=== PATIENT | male | born 1955 | race Caucasian/White ===

== ENCOUNTER 2024-04-13 18:32 | Emergency (ER) | payer MEDICARE, SELFPAY ==
[2024-04-13 18:32] VITALS: BMI 31.5
[2024-04-13 18:42] VITALS: BP 172/101
--- NOTE | 2024-04-13 19:22 | ED.GENMED ---
History of Present Illness
<NATACHA Caldwell (Lenka) - Last Filed: 04/14/24 00:28>
General
Chief Complaint: Cardiac Symptoms
Source: patient
Exam Limitations: none
Time Seen by Provider: 04/13/24 19:02
Nursing documentation reviewed up to this point in time: agreed with
History of Present Illness
History of Present Illness:
Pt is a 68 yo male with PMHx of endocarditis, [place] s/p 3 cardiac stents, paroxysmal AFib, HTN/HLD, multiple sclerosis, hypothyroidism who presents to the ED with dyspnea and chest tightness x 1d. Last night pt began feeling like he intermittently
couldn't take a deep breath and felt his pulse which 'felt like it was skipping beats'. This morning his head felt foggy and he reports general malaise on top of the intermittent SOB and now left sided chest tightness. He states he was clammy
earlier today and feels the need to burp. He has not taken any medications specifically for this discomfort. The only similar symptom to his prior [place] is the SOB. He denies MERCHANT, vision changes, back or flank pain, change in dyspnea with positioning,
abdominal pain, urinary or stool changes in the past week, numbness or tingling in his extremities, calf redness, swelling, or pain.
He notes that 1 week ago he had a viral URI where he tested negative for COVID, but he went online and ordered Ivermectin. His upper URI sx resolved in 3d, leaving him fatigued. He states he typically walks 2-3 miles daily, but over the past 1-2
weeks he has been much more sedentary.
He takes ASA 81mg daily.
Past History
<NATACHA Caldwell (Lenka) - Last Filed: 04/14/24 00:28>
Past History
ED Past Medical History: Arrthythmia (paroxysmal AFib), CAD, HTN, Hypercholesterolemia, [place], Hypothyroidism and Other (endocarditis, MS w/ chronic pain, no longer on chronic opiods, takes Kratom-leaf from [place])
ED Past Surgical History: Cardiac (3 stents)
Social History
Tobacco: Former smoker
Alcohol: None
Phy Exam
<NATACHA Caldwell (Lenka) - Last Filed: 04/14/24 00:28>
General Physical Exam
General Presentation: well appearing and no apparent distress
General age: appears stated age
General Skin: warm and dry
General Habitus: normal
General Mental: alert
General Hydration: appears well hydrated
Cardiovascular Exam
Cardiovascular Exam: regular rate/rhythm, no edema and normal peripheral pulses
Pulmonary Exam
Pulmonary Exam: lungs clear, no respiratory distress, no rales, chest non tender, no rhonchi and no cough
Gastrointestinal Exam
Gastrointestinal Exam: soft
Palpation: left upper quadrant: Minimal tenderness (minimally tender, with radiation to epigastric region. nontender with direct palpation of substernal/epigastric area), left lower quadrant: No tenderness, right upper quadrant: Minimal tenderness
(minimally tender, with radiation to epigastric region. nontender with direct palpation of substernal/epigastric area) and right lower quadrant: No tenderness
Neurological Exam
Neurological Exam: alert, oriented x3 and speech normal
Musculoskeletal Exam
Musculoskeletal Exam: full ROM and no edema
Skin Exam
Skin Exam: warm/dry and redness (B/L axilla)
Course
<NATACHA Caldwell (Lenka) - Last Filed: 04/14/24 00:28>
Orders/Labs/Results
Orders:
Orders
04/13/24 18:44
EKG [Electrocardiogram (*1)] Urgent
Reason for Study: Palpitations
EKG- Treatment ONCE
04/13/24 19:37
Comprehensive Metabolic Panel Urgent
Troponin I Urgent
04/13/24 20:05
Complete Blood Count/With Diff Urgent
Prothrombin Time Urgent
04/13/24 23:41
Troponin I Urgent
04/14/24 00:37
Electrocardiogram (*1) Urgent
Reason for Study: Chest Pain
EKG- Treatment ONCE
04/14/24 00:38
CR Chest - 2 Views Urgent
Comment:
Reason For Exam: cp
Abnormal Lab Results
04/13/24 04/13/24
19:37 20:05
Hgb 12.2 L g/dL
(13.0-18.0)
Hct 36.6 L %
(39.0-52.0)
MCV 76.6 L fL
(80.0-94.0)
MCH 25.5 L pg
(27.0-31.0)
RDW 15.9 H %
(11.5-14.5)
Absolute Lymphs (auto) 1.1 L 10^3/uL
(1.2-3.4)
Lymphocytes % 19.0 L %
(20.5-51.1)
Chloride 108 H mmol/L
(98-107)
Glucose 159 H mg/dl
(70-99)
04/13/24 20:05
04/13/24 19:37
Vital Signs
Initial and Last Documented VS:
Initial Vital Signs
Temp Pulse Resp BP Pulse Ox
98.0 F 105 17 172/101 97
04/13/24 18:42 04/13/24 18:42 04/13/24 18:42 04/13/24 18:42 04/13/24 18:42
Last Documented Vital Signs
Temp Pulse Resp BP Pulse Ox
98.0 F 77 15 172/101 95
04/13/24 18:42 04/14/24 00:15 04/14/24 00:15 04/13/24 18:42 04/14/24 00:15
<Jose Wilson, DO - Last Filed: 04/14/24 00:51>
Orders/Labs/Results
Orders:
Orders
04/13/24 18:44
EKG [Electrocardiogram (*1)] Urgent
Reason for Study: Palpitations
EKG- Treatment ONCE
04/13/24 19:37
Comprehensive Metabolic Panel Urgent
Troponin I Urgent
04/13/24 20:05
Complete Blood Count/With Diff Urgent
Prothrombin Time Urgent
04/13/24 23:41
Troponin I Urgent
04/14/24 00:37
Electrocardiogram (*1) Urgent
Reason for Study: Chest Pain
EKG- Treatment ONCE
04/14/24 00:38
CR Chest - 2 Views Urgent
Comment:
Reason For Exam: cp
Abnormal Lab Results
04/13/24 04/13/24
19:37 20:05
Hgb 12.2 L g/dL
(13.0-18.0)
Hct 36.6 L %
(39.0-52.0)
MCV 76.6 L fL
(80.0-94.0)
MCH 25.5 L pg
(27.0-31.0)
RDW 15.9 H %
(11.5-14.5)
Absolute Lymphs (auto) 1.1 L 10^3/uL
(1.2-3.4)
Lymphocytes % 19.0 L %
(20.5-51.1)
Chloride 108 H mmol/L
(98-107)
Glucose 159 H mg/dl
(70-99)
04/13/24 20:05
04/13/24 19:37
Vital Signs
Initial and Last Documented VS:
Initial Vital Signs
Temp Pulse Resp BP Pulse Ox
98.0 F 105 17 172/101 97
04/13/24 18:42 04/13/24 18:42 04/13/24 18:42 04/13/24 18:42 04/13/24 18:42
Last Documented Vital Signs
Temp Pulse Resp BP Pulse Ox
98.0 F 77 15 172/101 95
04/13/24 18:42 04/14/24 00:15 04/14/24 00:15 04/13/24 18:42 04/14/24 00:15
<Carine Boone) NATACHA Lewis - Last Filed: 04/14/24 00:28>
MDM/Problems Addressed
Differential Diagnosis Includes:
DDx: [place] vs PE vs unstable angina
Pt presenting
Chronic conditions affecting care: CAD
<NATACHA Caldwell (Lenka) - Last Filed: 04/14/24 00:28>
*Critical Care Note
Total Time (30-74mins, 75-104mins- exclusive of procedures): Not Applicable
<NATACHA Caldwell (Lenka) - Last Filed: 04/14/24 00:28>
Update Note
Update Note:
Initial troponin: < 0.012, will redraw @ 2330
2044 - pt still with symptoms of chest tightness and difficulty catching deep breath. Informed that he got bitted by 'a ton' of mosquitos 2-3d ago. Additionally informed that he had COVID 1-2 months ago, aside from the recent viral illness 1 week
ago that he took Ivermectin for.
Repeat troponin: < 0.012
ED Attending Note
<NATACHA Caldwell (Lenka) - Last Filed: 04/14/24 00:28>
-
Portions of this chart may have been created with voice recognition software.� Occasional wrong word or��sound alike� substitutions may have occurred due to the inherent limitations of voice recognition software.
<Jose Wilson, DO - Last Filed: 04/14/24 00:51>
ED Attending Note
Patient seen and examined by attending physician: Yes
I performed the substantive portion of visit, reviewed & personally made and approve the management plan that is documented in note by myself or AIXA.: Yes
ED Attending Note:
Pleasant 68-year-old male presents with palpitations and shortness of breath that began last evening. Patient follows with a formal service waiter at [facility]. Patient reports that the chest pain and dyspnea has been present for the last
day. He was recently diagnosed with a URI, tested negative for COVID but took ivermectin. He states that his symptoms cleared up within 3 days. He states that he has been fatigued since. Patient was seen in conjunction with the PA student. I
have reviewed and agree with the history and treatment plan presented. On my independent physical exam, patient is awake, alert, and oriented x3, minimal acute distress. Heart is regular rate and rhythm. Lungs are clear to auscultation
bilaterally no wheezes rales or rhonchi present. Abdomen is soft and nontender. Moves all 4 extremities.
Discharge Plan
Departure
Patient Disposition: Home (Routine Discharge)
Date of Disposition: 04/14/24
Time of Disposition: 00:50
Patient with high blood pressure during this ER visit?: Yes
Condition: Good
Discharge Problem:
Chest pain
Instructions: BLOOD PRESSURE, Chest Pain (DC)
Prescriptions:
No Action
atorvastatin 40 MG tablet
40 mg PO DAILY
omeprazole 40 MG capsule,delayed release(DR/EC)
40 mg PO DAILY
aspirin 81 MG tablet,delayed release (DR/EC)
81 mg PO DAILY
alprazolam 0.25 MG tablet
0.25 mg PO BID
levothyroxine 50 MCG tablet
50 mcg PO DAILY
lisinopril 10 MG tablet
10 mg PO DAILY
cholecalciferol (vitamin D3) 2,000 UNITS tablet
2,000 units PO DAILY
loratadine 10 MG capsule
10 mg PO DAILY
[id number] [Centrum Silver Men] 1 EACH tablet
1 ea PO DAILY
ondansetron 4 MG tablet,disintegrating
4 mg PO TIDPRN PRN (Reason: nausea/vomiting) Qty: 8 0RF
penicillin V potassium 500 MG tablet
500 mg PO Q6 Qty: 40 0RF
Referrals:
UNKNOWN - PT DOES,NOT KNOW [Family Provider] -
Activity Restrictions/Additional Instructions:
Please follow-up with your formal service waiter, as discussed.
It was a pleasure meeting you and taking part in your care. We hope for your continued healing and wellness.
Please read discharge instructions in their entirety. However, they are for general education and may not describe your exact diagnosis at discharge. Information on your ER visit and medical conditions were discussed with you along with appropriate
follow up information...
If indicated, please take your medications as instructed and indicated on discharge paperwork.
Please schedule a follow up appointment as directed. Call to schedule an appointment
Please return to the emergency department with ANY change in, persisting, or worsening of symptoms. If any of your symptoms do not improve, or persist, or become more severe within 6-12 hours, please return to the emergency department for further
care.
Please return to the emergency department if you develop a headache, neck pain/stiffness, fever greater than 100.4F, chest pain, shortness of breath, persistent nausea, vomiting, slurred speech, difficulty walking, numbness/tingling, weakness, signs
of infection or any other symptoms that are worrisome to you.
If you have any questions or concerns please do not hesitate to call the Hospital at or E-mail me directly at [email or web address]
Interventions
Interventions:
*Risk Screen - Suicide Last Done: 04/13/24 20:59
*General Assessment Last Done: 04/13/24 20:59
*Neglect/Abuse Screening Last Done: 04/13/24 20:59
ED- Fall Risk Assessment Last Done: 04/13/24 20:08
*ED COVID-19 Vaccine History Last Done: 04/13/24 20:59
ED- Pulmonary Assessment Last Done: 04/13/24 20:08
ED- Cardiac Assessment Last Done: 04/13/24 20:08
Discharge Date and Time
Print Language: MONTSERRATIAN
[2024-04-13 20:15] LABS: % Basophils 1.2 % (0-2); % Immature Granulocytes 0.2 % (0-0.5); % Monocytes 6.6 % (1.7-9.3); Absolute Basophils 0.1 10^3/uL (0-0.2); Absolute Eosinophils 0.1 10^3/uL (0-0.7); Absolute Lymphocytes 1.1 10^3/uL (1.2-3.4); Absolute Monocytes 0.4 10^3/uL (0.1-0.6); Hematocrit 36.6 % (39.0-52.0); Hemoglobin 12.2 g/dL (13.0-18.0); Mean Corp Hgb Conc. 33.3 g/dL (33.0-37.0); Mean Corpuscular Hgb 25.5 pg (27.0-31.0); Mean Corpuscular Volume 76.6 fL (80.0-94.0); Mean Platelet Volume 8.7 fL (7.4-10.4); Nucleated Red Blood Cells % 0 % (-); Platelet Count 295 10^3/uL (130-400); Red Blood Cell Count 4.78 10^6/uL (4.70-6.10); Red Cell Dist. Width 15.9 % (11.5-14.5); White Blood Cell Count 5.6 10^3/uL (4.8-10.8)
[2024-04-13 20:23] LABS: ALT (SGPT) 25 U/L (0-50); AST (SGOT) 26 U/L (17-59); Alkaline Phosphatase 81 U/L (38-126); Blood Urea Nitrogen 19 mg/dl (9-20); Calcium 9.5 mg/dl (8.4-10.2); Carbon Dioxide 23 mmol/L (22-30); Chloride 108 mmol/L (98-107); Estimated Creatinine Clearance 98 ml/min; Glucose 159 mg/dl (70-99); Sodium 143 mmol/L (135-145); Total Bilirubin 0.7 mg/dl (0.2-1.3); Total Protein 6.8 g/dl (6.3-8.2); eGFR > 60.00
[2024-04-13 20:24] LABS: Troponin I < 0.012 ng/ml
[2024-04-13 20:26] LABS: INR 1.06; PT 13.6 Sec (11.4-14.6)
[2024-04-14 00:17] LABS: Troponin I < 0.012 ng/ml
== END 2024-04-14 01:15 | disposition home or self-care (01) ==
LOC: EMR 18:32
PROVIDERS: Emergency Medicine; EMERGENCY PHYSICIAN Student in an Organized Health Care Education/Training Program
DX: R07.89 Other chest pain (principal); I10 Essential (primary) hypertension; I48.0 Paroxysmal atrial fibrillation; E78.00 Pure hypercholesterolemia, unspecified; E03.9 Hypothyroidism, unspecified; Z87.891 Personal history of nicotine dependence; G35 Multiple sclerosis
CPT/HCPCS: 99285; 71046; 80053; 84484; 85025; 85610; 93005